=== PATIENT | male | born 1950 | race Hispanic/Latino ===

== ENCOUNTER → 2022-06-23 | Outpatient (CLI) | payer OTHER | END | disposition home or self-care (01) | LOC: RAH 12:16 | PROVIDERS: ATTEND Internal Medicine | DX: J44.9 Chronic obstructive pulmonary disease, unspecified (principal); M47.815 Spondylosis without myelopathy or radiculopathy, thoracolumbar region | CPT/HCPCS: 71046 ==

== ENCOUNTER 2025-02-02 12:53 | Inpatient (IN) | payer OTHER ==
[~2025-02-02] VITALS: Ht 170.2 cm; Wt 94.0 kg
[2025-02-02 13:48] LABS: IMMATURE GRANULOCYTE ABSOLUTE 0.11 K/uL (0-1); NUCLEATED RED BLOOD CELLS 0.0 % (0.0-0.19); PLATELET COUNT (AUTO) 545 K/uL (130-400); RED BLOOD CELL COUNT(AUTO) 5.03 MIL/uL (4.50-6.20); RED CELL DISTRIBUTION WIDTH 13.5 % (11.0-15.5); WHITE BLOOD COUNT (AUTO) 12.6 K/uL (4.8-10.8)
--- NOTE | 2025-02-02 13:55 | EKG ---
[facility] Test Date: 2025-02-02 Test Time: 13:50:51 Pat Name: JOSHUA TIWARI Department: ED Room: DIRECT Gender: M Lag Screwer: [id number] : 1950 Requested By: ERIN HIGGINS Order Number: [id number] Reading MD: Denver Salinas Measurements Intervals [place] Rate: 78 P: 18 FL: 157 QRS: -18 QRSD: 88 T: 24 QT: 381 QTc: 434 Interpretive Statements Sinus rhythm No previous ECG available for comparison Electronically Signed On 02-02-2025 16:33:25 CDT by Denver Salinas Please click the below link to view image of tracing.
[2025-02-02 13:56] LABS: CREATININE 1.3 mg/dL (0.5-1.3); GLOMERULAR FILTR. RATE CALC 58.0 mL/min (>90); GLUCOSE,RANDOM 150.0 mg/dL (70-105); SODIUM SERUM 131.0 mmol/L (136-145); UREA NITROGEN, BLOOD 37.0 mg/dL (7-18)
[2025-02-02 14:00] LABS: INR 1.15 (0.85-1.15)
[2025-02-02] MEDS ORDERED: NITROGLYCERIN 0.4 MG SL TAB SL PRN (14:00)
--- NOTE | 2025-02-02 14:00 | NUR ---
ATTEMPTED TO RECONCILE MEDS WITH PT, WHEN ASKED WHEN WAS THE LAST TIME HE TOOK PILLS PT REPORTED " YOU ARE ASKING TOO MANY QUESTIONS". PT REPORTS THAT HE DOES NOT RECALL WHEN WAS THE LAST TIME HE TOOK HIS MEDICATIONS.
[2025-02-02 14:04] LABS: ASPARTATE AMINOTRANSFERASE 64.0 U/L (10-37); CREATINE KINASE, TOTAL 51.0 U/L (21-232); TOTAL PROTEIN, SERUM 7.9 g/dL (6.0-8.3)
[2025-02-02] MEDS ORDERED: LISI10TA24 PO (14:07)
[2025-02-02] MEDS ORDERED: ROSU20TA98 PO (14:07)
[2025-02-02] MEDS ORDERED: CLOP-31 PO (14:07)
[2025-02-02] MEDS ORDERED: DAPA10TA PO (14:07)
[2025-02-02] MEDS ORDERED: ALLO300T2 PO (14:07)
[2025-02-02] MEDS ORDERED: GABA-1405 PO (14:07)
--- NOTE | 2025-02-02 15:05 | NUR ---
REC PT AT THIS TIME FULL BED CH REQ DUE TO INCONTENENCE
[2025-02-02] MEDS: 1/2 NS 1000ML 1,000 ML IV SCH (15:09)
[2025-02-02 17:21] LABS: APPEARANCE,URINE CLEAR (CLEAR); GLUCOSE, URINE (UA) NEGATIVE (NEGATIVE); LEUKOCYTE ESTERASE ,URINE NEGATIVE Leu/uL (NEGATIVE); NITRATE,URINE NEGATIVE (NEGATIVE); OCCULT BLOOD,URINE NEGATIVE (NEGATIVE)
[2025-02-02 17:22] LABS: ADD UA MICROSCOPIC YES
[2025-02-02 17:23] LABS: OTHER CASTS, URINE 11 /LPF (None Seen); SQUAMOUS EPITHELIAL CELL,UR RARE /HPF (0-2)
--- NOTE | 2025-02-02 17:37 | CONS ---
Cardiac Consult Note CONSULT NOTE DATE OF SERVICE: Feb 02, 2025 at 12:53 REFERRING PROVIDER: JEN PERALES MD REASON FOR CONSULT: Concerns for peripheral arterial disease HPI: 74-year-old patient who was admitted from his PCP's office secondary to leg pain. Patient states he was at a hospital in [place] last week for a day and was told he had peripheral arterial disease but they did nothing else and patient did not have any invasive studies done. He presented to his PCP's office with complaints of leg pain and significant leg weakness with standing which he felt he had no strength in his legs. Patient also describes more significant swelling in the right leg compared to the left. He denies any wounds or ulcers. He denies any prior history of myocardial infarction CVA or TIA. He does have a history of diabetes mellitus and hypertension. Patient states he no longer drinks and he does not smoke ROS: No fever, headache, chest pain, abdominal pain, nausea, vomiting, or diarrhea. PMHX: Diabetes mellitus Hypertension Dyslipidemia PSHX: Patient denies any prior surgeries FH: Noncontributory SOCIAL: Former drinker nonsmoker PHYSICAL EXAMINATION: GENERAL: No acute distress. HEENT: Normocephalic, atraumatic. CARDIAC: Positive S1 and S2 distant heart sounds. No murmurs. LUNGS: Clear to auscultation bilaterally. ABDOMEN: Bowel sounds present, soft, nontender. EXTREMITIES: Trace pretibial edema on right and ankle edema on left with minor hyperpigmentation noted bilaterally and right leg does seem slightly enlarged compared to left in regards to girth poorly palpable pedal and popliteal pulses NEUROLOGIC: Cranial nerves 2-12 grossly intact. PSYCHIATRIC: Calm. ASSESSMENT: Peripheral arterial disease Possible venous insufficiency Diabetes mellitus Diabetic angiopathy PLAN: At this time I think would be most reasonable to proceed with a peripheral arterial disease workup to include bilateral lower extremity arterial Dopplers and lower extremity venous Dopplers considering patient's unilateral swelling. Also with the patient's swelling I would schedule him for a 2D echocardiogram for overall cardiac assessment. We will also check hemoglobin A1c to assess glu cose control as an outpatient. We will also optimize lipid management. We will check appropriate labs in a.m.. Vital Signs 02/02/25 02/02/25 12:55 16:19 Temp 98.4 98.6 Pulse 95 68 Resp 19 16 B/P (MAP) 131/82 130/68 Pulse Ox 98 98 O2 Delivery Room Air Room Air* O2 Flow Rate 0 0 FiO2 21 Laboratory Tests Test 02/02/25 13:40 02/02/25 17:14 White Blood Count 12.6 K/uL (4.8-10.8) Red Blood Count 5.03 MIL/uL (4.50-6.20) Hemoglobin 14.7 g/dL (14.0-18.0) Hematocrit 45.3 % (42-54) Mean Corpuscular Volume 90.1 fL (79-99) Mean Corpuscular Hemoglobin 29.2 pg (27.0-33.0) Mean Corpuscular Hemoglobin Concent 32.5 g/dL (32.0-36.0) Red Cell Distribution Width 13.5 % (11.0-15.5) Platelet Count 545 K/uL (130-400) Mean Platelet Volume 8.8 fL (7.5-10.5) Immature Granulocyte % (Auto) 0.9 % (0-1) Neutrophils (%) (Auto) 73.4 % (40.0-77.0) Lymphocytes (%) (Auto) 10.2 % (21.0-51.0) Monocytes (%) (Auto) 13.9 % (3.0-13.0) Eosinophils (%) (Auto) 0.8 % (0.0-8.0) Basophils (%) (Auto) 0.8 % (0.0-5.0) Neutrophils # (Auto) 9.2 K/uL (1.8-7.7) Lymphocytes # (Auto) 1.3 K/uL (1.0-4.8) Monocytes # (Auto) 1.7 K/uL (0.1-1.0) Eosinophils # (Auto) 0.10 K/uL (0.00-0.70) Basophils # (Auto) 0.10 K/uL (0.00-0.20) Absolute Immature Granulocyte (auto 0.11 K/uL (0-1) Nucleated Red Blood Cells 0.0 % (0.0-0.19) Prothrombin Time 12.0 SEC (9.6-11.6) Prothromb Time International Ratio 1.15 (0.85-1.15) Activated Partial Thromboplast Time 30.9 SEC (26.3-35.5) Sodium Level 131 mmol/L (136-145) Potassium Level 4.7 mmol/L (3.5-5.1) Chloride Level 94 mmol/L (101-111) Carbon Dioxide Level 24 mmol/L (21-32) Blood Urea Nitrogen 37 mg/dL (7-18) Creatinine 1.3 mg/dL (0.5-1.3) Glomerular Filtration Rate Calc 58 mL/min (>90) Random Glucose 150 mg/dL (70-105) Total Calcium 9.2 mg/dL (8.5-10.1) Total Bilirubin 1.0 mg/dL (0.2-1.0) Aspartate Amino Transf (AST/SGOT) 64 U/L (10-37) Alanine Aminotransferase (ALT/SGPT) 85 U/L (12-78) Alkaline Phosphatase 85 U/L (50-136) Total Creatine Kinase 51 U/L (21-232) Troponin I High Sensitivity 21.5 ng/L (4-75) Total Protein 7.9 g/dL (6.0-8.3) Albumin 2.7 g/dL (3.5-5.0) Urine Color YELLOW (YELLOW) Urine Appearance CLEAR (CLEAR) Urine pH 5.0 (5.0-8.0) Urine Specific [place] 1.019 (1.001-1.031) Urine Protein NEGATIVE mg/dL (NEGATIVE) Urine Glucose (UA) NEGATIVE mg/dL (NEGATIVE) Urine Ketones NEGATIVE mg/dL (NEGATIVE) Urine Occult Blood NEGATIVE (NEGATIVE) Urine Nitrate NEGATIVE (NEGATIVE) Urine Bilirubin NEGATIVE mg/dL (NEGATIVE) Urine Urobilinogen 0.2 mg/dL (0.2-1.0) Urine Leukocyte Esterase NEGATIVE Yanci/uL Urine RBC 2-5 /HPF (0-1) Urine WBC 2-5 /HPF (0-1) Urine Squamous Epithelial Cells RARE /HPF (0-2) Urine Bacteria RARE /HPF (None Seen) Urine Hyaline Casts 6-10 /LPF (0-1 /LPF) Urine Other Casts 11 /LPF (None Seen) Current Medications Medications Dose Ordered Sig/Laurie Route PRN Reason Start Time Stop Time Status Last Admin Sodium Chloride 1,000 ml @ 75 mls/hr [id number] IV 02/02/25 14:00 03/04/25 13:59 02/02/25 15:09 Aspirin 325 mg DAILY PO 02/03/25 09:00 03/05/25 08:59 Reported Medications Gabapentin (Gabapentin) 600 Mg Tablet, 300 MG PO TID, TAB 02/02/25 Clopidogrel Bisulfate (Plavix) 75 Mg Tablet, 1 TAB PO DAILY for 30 Days, #30 TAB 0 Refills 02/02/25 Allopurinol (Allopurinol) 300 Mg Tablet, 1 TAB PO DAILY for 30 Days, #30 TAB 0 Refills 02/02/25 Lisinopril (Lisinopril) 10 Mg Tablet, 1 TAB PO DAILY for 30 Days, #30 TAB 0 Refills 02/02/25 Rosuvastatin Calcium (Rosuvastatin Calcium) 20 Mg Tablet, 20 MG PO DAILY, TAB 02/02/25 Dapagliflozin Propanediol (Farxiga) 10 Mg Tablet, 10 MG PO DAILY, TAB 02/02/25 JEN PERALES MD Feb 02, 2025 17:37
--- NOTE | 2025-02-02 20:05 | HP ---
HISTORY AND PHYSICAL NOTE DATE OF CONSULTATION: 02/02/25 REASON FOR CONSULTATION: Leg pain and leg weakness HISTORY OF PRESENT ILLNESS: Patient with known peripheral arterial disease now with increased leg pain and weakness is being admitted as he has bluish discoloration to the leg suggestive of possible impending ischemia is being admitted for further evaluation PAST MEDICAL HISTORY: Significant for diabetes hypertension hyperlipidemia umbilical hernia repair recently history of gout ex-smoker spinal stenosis aortic stenosis moderate and ALLERGIES: Coded Allergies: No Known Drug Allergies (Unverified Allergy, Unknown, 02/02/25) HOME MEDS: Reported Medications Gabapentin (Gabapentin) 600 Mg Tablet, 300 MG PO TID, TAB 02/02/25 Clopidogrel Bisulfate (Plavix) 75 Mg Tablet, 1 TAB PO DAILY for 30 Days, #30 TAB 0 Refills 02/02/25 Allopurinol (Allopurinol) 300 Mg Tablet, 1 TAB PO DAILY for 30 Days, #30 TAB 0 Refills 02/02/25 Lisinopril (Lisinopril) 10 Mg Tablet, 1 TAB PO DAILY for 30 Days, #30 TAB 0 Refills 02/02/25 Rosuvastatin Calcium (Rosuvastatin Calcium) 20 Mg Tablet, 20 MG PO DAILY, TAB 02/02/25 Dapagliflozin Propanediol (Farxiga) 10 Mg Tablet, 10 MG PO DAILY, TAB 02/02/25 INPATIENT MEDS: Current Medications Medications Dose Ordered Sig/Laurie Start Time Stop Time Status Last Admin Sodium Chloride 1,000 ml @ 75 mls/hr [id number] 02/02/25 14:00 03/04/25 13:59 02/02/25 15:09 Acetaminophen 650 mg Q4H PRN 02/02/25 14:00 03/04/25 13:59 Ondansetron HCl 4 mg Q6H PRN 02/02/25 14:00 03/04/25 13:59 Zolpidem Tartrate 5 mg HS PRN 02/02/25 14:00 03/04/25 13:59 Nitroglycerin 0.4 mg AD PRN 02/02/25 14:00 03/04/25 13:59 Clonidine HCl 0.1 mg Q4H PRN 02/02/25 14:00 03/04/25 13:59 Aspirin 325 mg DAILY 02/03/25 09:00 03/05/25 08:59 VITAL SIGNS Vital Signs Date Time Temp Pulse Resp B/P (MAP) Pulse Ox O2 Delivery O2 Flow Rate FiO2 02/02/25 18:54 98.6 64 16 124/54 98 Room Air* 0 21 02/02/25 16:19 98.6 68 16 130/68 98 Room Air* 0 21 02/02/25 12:55 98.4 95 19 131/82 98 Room Air 0 PHYSICAL EXAM HEENT atraumatic normocephalic head Neck is supple Lungs are clear to auscultation percussion Heart was S1-S2 heard no murmur Extremities no pedal edema Extremities reveal bluish discoloration with feeble pedal pulses Skin exam unremarkable Neurologic no focal weakness Psychiatric no depression LABORATORY RESULTS Laboratory Tests 02/02/25 13:40: White Blood Count 12.6, Red Blood Count 5.03, Hemoglobin 14.7, Hematocrit 45.3, Mean Corpuscular Volume 90.1, Mean Corpuscular Hemoglobin 29.2, Mean Corpuscular Hemoglobin Concent 32.5, Red Cell Distribution Width 13.5, Platelet Count 545, Mean Platelet Volume 8.8, Immature Granulocyte % (Auto) 0.9, Neutrophils (%) (Auto) 73.4, Lymphocytes (%) (Auto) 10.2, Monocytes (%) (Auto) 13.9, Eosinophils (%) (Auto) 0.8, Basophils (%) (Auto) 0.8, Neutrophils # (Auto) 9.2, Lymphocytes # (Auto) 1.3, Monocytes # (Auto) 1.7, Eosinophils # (Auto) 0.10, Basophils # (Auto) 0.10, Absolute Immature Granulocyte (auto 0.11, Nucleated Red Blood Cells 0.0, Prothrombin Time 12.0, Prothromb Time International Ratio 1.15, Activated Partial Thromboplast Time 30.9, Sodium Level 131, Potassium Level 4.7, Chloride Level 94, Carbon Dioxide Level 24, Blood Urea Nitrogen 37, Creatinine 1.3, Glome rular Filtration Rate Calc 58, Random Glucose 150, Total Calcium 9.2, Total Bilirubin 1.0, Aspartate Amino Transf (AST/SGOT) 64, Alanine Aminotransferase (ALT/SGPT) 85, Alkaline Phosphatase 85, Total Creatine Kinase 51, Troponin I High Sensitivity 21.5, Total Protein 7.9, Albumin 2.7 02/02/25 17:14: Urine Color YELLOW, Urine Appearance CLEAR, Urine pH 5.0, Urine Specific [place] 1.019, Urine Protein NEGATIVE, Urine Glucose (UA) NEGATIVE, Urine Ketones NEGATIVE, Urine Occult Blood NEGATIVE, Urine Nitrate NEGATIVE, Urine Bilirubin NEGATIVE, Urine Urobilinogen 0.2, Urine Leukocyte Esterase NEGATIVE, Urine RBC 2-5, Urine WBC 2-5, Urine Squamous Epithelial Cells RARE, Urine Bacteria RARE, Urine Hyaline Casts 6-10, Urine Other Casts 11 PROBLEM LIST: (1) PAD (peripheral artery disease) ICD Codes: I73.9 - Peripheral vascular disease, unspecified PLAN PID with possible impending ischemia follow up with anticoagulation consult Card iology symptomatic pain treatment Sliding scale for diabetes Resume home medication for hyperlipidemia Chronic obstructive pulmonary disease ERIN HIGGINS MD Feb 02, 2025 20:05
--- NOTE | 2025-02-02 22:48 | NUR ---
FIRST ATTEMPT TO PROVIDE REPORT SUNNY CURRENTLY PROVIDING PT CARE PROVIDED EXT FOR CALL BACK
[2025-02-02 23:25] VITALS: BP 113/60; PULSE 73; RESP 20; TEMP 99
[2025-02-03] VITALS (7 sets, daily range): BP systolic 134–153; BP diastolic 55–73; PULSE 66–79; RESP 15–18; TEMP 97.8–98.4; O2SAT 94–99
[2025-02-03 04:23] LABS: IMMATURE GRANULOCYTE ABSOLUTE 0.09 K/uL (0-1); NUCLEATED RED BLOOD CELLS 0.0 % (0.0-0.19); PLATELET COUNT (AUTO) 547 K/uL (130-400); RED BLOOD CELL COUNT(AUTO) 4.69 MIL/uL (4.50-6.20); RED CELL DISTRIBUTION WIDTH 13.4 % (11.0-15.5); WHITE BLOOD COUNT (AUTO) 11.4 K/uL (4.8-10.8)
[2025-02-03 04:46] LABS: CREATININE 1.0 mg/dL (0.5-1.3); GLOMERULAR FILTR. RATE CALC 79.0 mL/min (>90); GLUCOSE,RANDOM 157.0 mg/dL (70-105); SODIUM SERUM 133.0 mmol/L (136-145); UREA NITROGEN, BLOOD 37.0 mg/dL (7-18)
[2025-02-03] MEDS: ASPIRIN 325MG TAB PO SCH (09:41)
--- NOTE | 2025-02-03 11:41 | NUR ---
DCP:HOME vs SNF SW spoke with brother Brody Mayfield [phone] due to pt being asleep and not wanting to wake up. Pt uses wheelchair, walker, and crutches at home. As per brother he does not have provider service at this time however feels that he should have one due to having difficulty completing ADLs. PCP is Dr. West and uses [facility] for any RX needs. At [place] brother states that pt had made a comment that he would be willing to go to SNF for PT (no consent obtained). *pt does have an adult son however as per brother, son is disabled and lives in [place] [facility] [place]. Addendum: 02/03/25 at 1144 by SUNNY ARELLANO SS Amended: Links added.
--- NOTE | 2025-02-03 12:58 | HMCIMG ---
CHEST 1VW REASON: sob COMPARISON: Prior study from 06/23/2022 is available. FINDINGS: Single view of the chest was obtained. Lungs are clear. Heart size is normal. There is no pulmonary vascular congestion. Mediastinum and bony thorax appear unremarkable. IMPRESSION: 1. Unchanged from prior study with no acute cardiac pulmonary process.
--- NOTE | 2025-02-03 13:09 | PN ---
PROGRESS NOTE PROBLEM LIST: Peripheral arterial disease Possible venous insufficiency Diabetes mellitus Diabetic angiopathy INTERIM HISTORY OF PRESENT ILLNESS: Overall patient states he is doing well. Denies any chest pain pressure tightness. Home medications have not been reconciliation and started. REVIEW OF SYSTEMS: No fever, headache, chest pain, abdominal pain, nausea, vomiting, or diarrhea. VITAL SIGNS Vital Signs Date Time Temp Pulse Resp B/P (MAP) Pulse Ox O2 Delivery O2 Flow Rate FiO2 02/03/25 12:00 97.9 68 18 153/73 94 Room Air 02/03/25 00:31 0 21 Laboratory Tests 02/02/25 13:40 02/03/25 03:48 LABS/MEDS Laboratory Tests Test 02/02/25 13:40 02/02/25 17:14 02/02/25 23:04 02/03/25 03:48 White Blood Count 12.6 K/uL (4.8-10.8) H 11.4 K/uL (4.8-10.8) H Red Blood Count 5.03 MIL/uL (4.50-6.20) 4.69 MIL/uL (4.50-6.20) Hemoglobin 14.7 g/dL (14.0-18.0) 13.7 g/dL (14.0-18.0) L Hematocrit 45.3 % (42-54) 41.4 % (42-54) L Mean Corpuscular Volume 90.1 fL (79-99) 88.3 fL (79-99) Mean Corpuscular Hemoglobin 29.2 pg (27.0-33.0) 29.2 pg (27.0-33.0) Mean Corpuscular Hemoglobin Concent 32.5 g/dL (32.0-36.0) 33.1 g/dL (32.0-36.0) Red Cell Distribution Width 13.5 % (11.0-15.5) 13.4 % (11.0-15.5) Platelet Count 545 K/uL (130-400) H 547 K/uL (130-400) H Mean Platelet Volume 8.8 fL (7.5-10.5) 9.1 fL (7.5-10.5) Immature Granulocyte % (Auto) 0.9 % (0-1) 0.8 % (0-1) Neutrophils (%) (Auto) 73.4 % (40.0-77.0) 65.6 % (40.0-77.0) Lymphocytes (%) (Auto) 10.2 % (21.0-51.0) L 14.4 % (21.0-51.0) L Monocytes (%) (Auto) 13.9 % (3.0-13.0) H 14.6 % (3.0-13.0) H Eosinophils (%) (Auto) 0.8 % (0.0-8.0) 3.7 % (0.0-8.0) Basophils (%) (Auto) 0.8 % (0.0-5.0) 0.9 % (0.0-5.0) Neutrophils # (Auto) 9.2 K/uL (1.8-7.7) H 7.5 K/uL (1.8-7.7) Lymphocytes # (Auto) 1.3 K/uL (1.0-4.8) 1.6 K/uL (1.0-4.8) Monocytes # (Auto) 1.7 K/uL (0.1-1.0) H 1.7 K/uL (0.1-1.0) H Eosinophils # (Auto) 0.10 K/uL (0.00-0.70) 0.42 K/uL (0.00-0.70) Basophils # (Auto) 0.10 K/uL (0.00-0.20) 0.10 K/uL (0.00-0.20) Absolute Immature Granulocyte (auto 0.11 K/uL (0-1) 0.09 K/uL (0-1) Nucleated Red Blood Cells 0.0 % (0.0-0.19) 0.0 % (0.0-0.19) Prothrombin Time 12.0 SEC (9.6-11.6) H Prothromb Time International Ratio 1.15 (0.85-1.15) Activated Partial Thromboplast Time 30.9 SEC (26.3-35.5) Sodium Level 131 mmol/L (136-145) L 133 mmol/L (136-145) L Potassium Level 4.7 mmol/L (3.5-5.1) 4.4 mmol/L (3.5-5.1) Chloride Level 94 mmol/L (101-111) L 98 mmol/L (101-111) L Carbon Dioxide Level 24 mmol/L (21-32) 26 mmol/L (21-32) Blood Urea Nitrogen 37 mg/dL (7-18) H 37 mg/dL (7-18) H Creatinine 1.3 mg/dL (0.5-1.3) 1.0 mg/dL (0.5-1.3) Glomerular Filtration Rate Calc 58 mL/min (>90) 79 mL/min (>90) Random Glucose 150 mg/dL (70-105) H 157 mg/dL (70-105) H Total Calcium 9.2 mg/dL (8.5-10.1) 8.6 mg/dL (8.5-10.1) Total Bilirubin 1.0 mg/dL (0.2-1.0) Aspartate Amino Transf (AST/SGOT) 64 U/L (10-37) H Alanine Aminotransferase (ALT/SGPT) 85 U/L (12-78) H Alkaline Phosphatase 85 U/L (50-136) Total Creatine Kinase 51 U/L (21-232) Troponin I High Sensitivity 21.5 ng/L (4-75) Total Protein 7.9 g/dL (6.0-8.3) Albumin 2.7 g/dL (3.5-5.0) L Urine Color YELLOW (YELLOW) Urine Appearance CLEAR (CLEAR) Urine pH 5.0 (5.0-8.0) Urine Specific [place] 1.019 (1.001-1.031) Urine Protein NEGATIVE mg/dL (NEGATIVE) Urine Glucose (UA) NEGATIVE mg/dL (NEGATIVE) Urine Ketones NEGATIVE mg/dL (NEGATIVE) Urine Occult Blood NEGATIVE (NEGATIVE) Urine Nitrate NEGATIVE (NEGATIVE) Urine Bilirubin NEGATIVE mg/dL (NEGATIVE) Urine Urobilinogen 0.2 mg/dL (0.2-1.0) Urine Leukocyte Esterase NEGATIVE Yanci/uL Urine RBC 2-5 /HPF (0-1) H Urine WBC 2-5 /HPF (0-1) H Urine Squamous Epithelial Cells RARE /HPF (0-2) Urine Bacteria RARE /HPF (None Seen) Urine Hyaline Casts 6-10 /LPF (0-1 /LPF) H Urine Other Casts 11 /LPF (None Seen) Whole Blood Glucose 183 MG/DL (70-110) H Test 02/03/25 04:28 02/03/25 11:29 Whole Blood Glucose 164 MG/DL (70-110) H 146 MG/DL (70-110) H Current Medications Sodium Chloride 1,000 ml @ 75 mls/hr [id number] IV Last administered on 02/03/25at 03:20; Start 02/02/25 at 14:00; Stop 03/04/25 at 13:59 Acetaminophen 650 mg Q4H PRN PO Last administered on 02/03/25at 09:41; Start 02/02/25 at 14:00; Stop 03/04/25 at 13:59 Ondansetron HCl 4 mg Q6H PRN IVP; Start 02/02/25 at 14:00; Stop 03/04/25 at 13:59 Zolpidem Tartrate 5 mg HS PRN PO; Start 02/02/25 at 14:00; Stop 03/04/25 at 13:59 Nitroglycerin 0.4 mg AD PRN SL; Start 02/02/25 at 14:00; Stop 03/04/25 at 13:59 Clonidine HCl 0.1 mg Q4H PRN PO; Start 02/02/25 at 14:00; Stop 03/04/25 at 13:59 Aspirin 325 mg DAILY PO Last administered on 02/03/25at 09:41; Start 02/03/25 at 09:00; Stop 03/05/25 at 08:59 Methylprednisolone Sodium Succinate 125 mg DAILY08 IVP Last administered on 02/03/25at 09:39; Start 02/03/25 at 08:00; Stop 02/05/25 at 11:00 PHYSICAL EXAMINATION: GENERAL: No acute distress. HEENT: Normocephalic, atraumatic. CARDIAC: Positive S1 and S2. No murmurs. LUNGS: Clear to auscultation bilaterally. ABDOMEN: Bowel sounds present, soft, nontender. EXTREMITIES: Bilateral lower extremity edema noted NEUROLOGIC: Cranial nerves 2-12 grossly intact. PSYCHIATRIC: Calm. TELEMETRY: Normal sinus rhythm ASSESSMENT: []Peripheral arterial disease Possible venous insufficiency Diabetes mellitus Diabetic angiopathy PLAN: [] We will check 2D echocardiography today. We will check lower extremity arterial Dopplers today. We will check lower extremity venous Dopplers. We will institute lisinopril 10 mg daily. This is the patient's home medication. He also takes a sodium glucose transport to inhibitor which can be initiated by primary team. Patient may benefit from CT angiography of abdominal aorta with bilateral lower extremity runoffs if arterial Doppler studies are significant for PAD. JEN PERALES MD Feb 03, 2025 13:09
--- NOTE | 2025-02-03 13:27 | HMCIMG ---
US ARTERIAL BILAT LOW EXT DUPL HISTORY: PAD TECHNIQUE: Duplex Doppler evaluation of the arteries of both legs performed. FINDINGS: Grayscale images revealed intimal calcifications throughout both lower extremities. Peak systolic velocities and wave patterns were documented, as follows: RIGHT LEG Common femoral: 122 cm/s Triphasic Superficial femoral prox: 108 cm/s Triphasic Superficial femoral mid: 1:15 cm/s Triphasic Superficial femoral distal: 91 cm/s Triphasic Popliteal: 100 cm/s Triphasic Posterior tibial: 112 cm/s monophasic Dorsalis pedis: 177 cm/s monophasic LEFT LEG Common femoral: 107 cm/s biphasic Superficial femoral prox: 105 cm/s Triphasic Superficial femoral mid: 95 cm/s Triphasic Superficial femoral distal: 86 cm/s Triphasic Popliteal: 86 cm/s monophasic Posterior tibial: 128 cm/s monophasic Dorsalis pedis: 52 cm/s monophasic There is mild diffuse atherosclerotic changes with calcified plaque IMPRESSION: Mild diffuse atherosclerotic changes with calcified plaque. Recommend CTA of the lower extremities for further workup.
--- NOTE | 2025-02-03 15:48 | HMCIMG ---
US VENOUS DOPPLER BILATERAL REASON: edema COMPARISON: None Technique: Bilateral venous doppler ultrasound was performed with spectral analysis and color flow imaging technique. FINDINGS: There is a normal appearance of the common femoral, deep femoral, the profunda femoris and popliteal veins. Proximal calf veins appear normal as well. There is normal response to compression and augmentation. There is no evidence of deep venous thrombosis. IMPRESSION: Normal bilateral lower extremity venous Doppler ultrasound.
--- NOTE | 2025-02-03 15:59 | NUR ---
REFERAL SENT TO [facility]. PENDING FURTHER EVALUATION OF PAD
--- NOTE | 2025-02-03 16:00 | NUR ---
Nutrition consult per T2DM Reviewed labs, notes, and medications. Pt on HH diet, IV fluids, Na 133(L), elevated BUN 37, Cr WNL, BG 164 (H), elevated AST and ALT, no A1C lipid or vit. D labs per chart review. Wt via bed scale, with stage II buttock ulcer, last BM 02/03/25, mild pitting, well nourished per nursing. Pt asleep during visit. Per research low vitamin D may contribute to insulin resistance + vit. D deficiency may impair wound healing. Zinc deficiency can slow wound healing, while zinc supplementation can speed recovery in people with wounds per research. Pending labs to provide nutrition education. Recommendations: -Provide HH+ 60 gm cho + prostat jello tid w/ trays -Monitor PO intake -Encourage PO intake as able -Monitor BM -If no BM >3 days consider stool softener -Monitor electrolytes -Replenish electrolytes per protocol -Monitor wts -Reweigh as able -Order Vit D, vit b-12 labs to rule out deficiencies -Order lipid panel, A1C -Provide MVI + b-complex to aid in wound healing QD -Texture per BUMBOATER recs -Recommend Pt to follow up with PCP -Monitor goals of care RD to follow + available for consult per protocol Addendum: 02/03/25 at [address] Amended: Links added.
[2025-02-03 17:22] LABS: LDL DIRECT 93 mg/dL (0-99)
--- NOTE | 2025-02-03 18:26 | HMCSR ---
APPROVED REPORT EXAM: Two-dimensional and M-mode echocardiogram with Doppler and color Doppler. INDICATION ICD: Edema, congestive heart failure, coronary artery disease 2D Dimensions RVDd4.2 cmLVEF(%)45.8 (>50%)LVED Vol(simp.)67.0 mL IVSd0.9 (0.7-1.1cm)FS(%)23 %LVES Vol(simp.)28.0 mL LVDd5.5 (3.8-5.6cm)LA (2D)4.4 (1.6-4.0cm)LVEF(%, simp.)58 % PWd1.2 (0.7-1.1cm)Ao Root(2D)3.9 (2.0-3.7cm)LA ESV INDEX (BP)30.04 mL/m2 IVSs1.2 cmLVOT diam2.6 (1.8-2.4cm) LVDs4.2 (2.5-4.0cm) PWs1.6 cm Deformation Strain Apical 4-16.5 % Apical 2-11.1 % Apical 3-18.9 % Global Strain-15.5 % M-Mode Dimensions EPSS1.0 cm LA (MM)4.9 (1.6-4.0cm) Ao Root(MM)3.7 (2.0-3.7cm) Aortic Valve AoV Vmax3.0 m/Andria Peak GR42.8 mmHgLVOT Vmax1.1 m/s AoV VTI0.6 mAo Mean GR21.5 mmHgLVOT VTI0.22 m CARLA (VMAX)1.90 cm2Al P1/2T434 msAVA (VTI) 2.1 cm2 Mitral Valve MV E Vmax61.6 cm/sDECEL Nnji108 ms MV A Vmax81.2 cm/sP 1/2 T63 ms E/A ratio0.8MVA (PHT)3.5 cm2 TDI E/E' Hibofz70.0E/E' Lateral7.6 Medial E' Peak V6.15 cm/sLateral E' Peak V8.13 cm/s Pulmonary Valve PV Vmax1.3 m/sPV VTI0.22 mPV Mean GR3.9 mmHg PV Peak GR6.9 mmHgPI End Nuria. Devang 129.7 cm/s Tricuspid Valve TR Vmax2.8 m/sRAP (EST) 3 auVuVYLF18.2 mmHg TR Peak GR31.2 mmHg Left Ventricle The left ventricle is normal size. There is normal left ventricular wall thickness. LVEF is >55%. The left ventricular diastolic function is normal. Right Ventricle The right ventricle is normal size. The right ventricular systolic function is normal. Atria The left atrium size is normal. The right atrium size is normal. Aortic Valve The aortic valve is thickened with annular calcification noted. Trace aortic regurgitation is present . There is mild to moderate valvular aortic stenosis. Highest mean aortic valve gradient is 20mmHg, h ighest pk gardient 35mmHg. AoV area 1.9cm2 Mitral Valve The mitral valve is normal in structure. There is no mitral valve regurgitation noted. There is no mi tral valve stenosis. Tricuspid Valve The tricuspid valve is normal in structure. There is trace tricuspid valve regurgitation noted. Pulmonic Valve Pulmonic valve is not well visualized. There is trace pulmonic valvular regurgitation. Great Vessels The aortic root is normal in size. The IVC is normal in size and collapses >50% with inspiration. Pericardium There is no pericardial effusion. Other Information Quality : Technically difficult study due to body habitus Conclusion The left ventricle is normal size. LVEF is >55%. The left ventricular diastolic function is normal. The right ventricular systolic function is normal. Both atria are normal in size. There is mild to moderate valvular aortic stenosis. (Highest mean aortic valve gradient is 20mmHg an d AoV area 1.9cm2) There is no pericardial effusion.
--- NOTE | 2025-02-03 19:42 | PN ---
PROGRESS NOTE PROGRESS NOTE DATE OF PROGRESS NOTE: 02/03/25 SUBJECTIVE: Patient appears to have painful leg from gout VITAL SIGNS Vital Signs Date Time Temp Pulse Resp B/P (MAP) Pulse Ox O2 Delivery O2 Flow Rate FiO2 02/03/25 16:00 98.1 69 18 139/63 95 Room Air 02/03/25 09:41 0 21 PHYSICAL EXAM: HEENT atraumatic normocephalic head Neck is supple Lungs are clear to auscultation percussion Heart was S1-S2 heard no murmur Extremities no pedal edema Extremities reveal bluish discoloration with feeble pedal pulses Skin exam unremarkable Neurologic no focal weakness Psychiatric no depression LABORATORY: Laboratory Result(s) Test 02/02/25 23:04 02/03/25 03:48 02/03/25 04:28 02/03/25 11:29 Whole Blood Glucose 183 MG/DL (70-110) 164 MG/DL (70-110) 146 MG/DL (70-110) White Blood Count 11.4 K/uL (4.8-10.8) Red Blood Count 4.69 MIL/uL (4.50-6.20) Hemoglobin 13.7 g/dL (14.0-18.0) Hematocrit 41.4 % (42-54) Mean Corpuscular Volume 88.3 fL (79-99) Mean Corpuscular Hemoglobin 29.2 pg (27.0-33.0) Mean Corpuscular Hemoglobin Concent 33.1 g/dL (32.0-36.0) Red Cell Distribution Width 13.4 % (11.0-15.5) Platelet Count 547 K/uL (130-400) Mean Platelet Volume 9.1 fL (7.5-10.5) Immature Granulocyte % (Auto) 0.8 % (0-1) Neutrophils (%) (Auto) 65.6 % (40.0-77.0) Lymphocytes (%) (Auto) 14.4 % (21.0-51.0) Monocytes (%) (Auto) 14.6 % (3.0-13.0) Eosinophils (%) (Auto) 3.7 % (0.0-8.0) Basophils (%) (Auto) 0.9 % (0.0-5.0) Neutrophils # (Auto) 7.5 K/uL (1.8-7.7) Lymphocytes # (Auto) 1.6 K/uL (1.0-4.8) Monocytes # (Auto) 1.7 K/uL (0.1-1.0) Eosinophils # (Auto) 0.42 K/uL (0.00-0.70) Basophils # (Auto) 0.10 K/uL (0.00-0.20) Absolute Immature Granulocyte (auto 0.09 K/uL (0-1) Nucleated Red Blood Cells 0.0 % (0.0-0.19) Sodium Level 133 mmol/L (136-145) Potassium Level 4.4 mmol/L (3.5-5.1) Chloride Level 98 mmol/L (101-111) Carbon Dioxide Level 26 mmol/L (21-32) Blood Urea Nitrogen 37 mg/dL (7-18) Creatinine 1.0 mg/dL (0.5-1.3) Glomerular Filtration Rate Calc 79 mL/min (>90) Random Glucose 157 mg/dL (70-105) Hemoglobin A1c 7.4 % (4.0-6.0) Estimated Average Glucose (eAG) 166 mg/dL (70-126) Total Calcium 8.6 mg/dL (8.5-10.1) Triglycerides Level 68 mg/dL (30-200) Cholesterol Level 122 mg/dL (<200) LDL Cholesterol 93 mg/dL (0-99) HDL Cholesterol 23 mg/dL (29-71) Vitamin B12 Level 460 pg/mL (193-986) Test 02/03/25 15:50 02/03/25 19:32 Whole Blood Glucose 278 MG/DL (70-110) 214 MG/DL (70-110) INPATIENT MEDS: Current Medications Medications Dose Ordered Sig/Laurie Start Time Stop Time Status Last Admin Sodium Chloride 1,000 ml @ 75 mls/hr [id number] 02/02/25 14:00 03/04/25 13:59 02/03/25 03:20 Acetaminophen 650 mg Q4H PRN 02/02/25 14:00 03/04/25 13:59 02/03/25 09:41 Ondansetron HCl 4 mg Q6H PRN 02/02/25 14:00 03/04/25 13:59 Zolpidem Tartrate 5 mg HS PRN 02/02/25 14:00 03/04/25 13:59 Nitroglycerin 0.4 mg AD PRN 02/02/25 14:00 03/04/25 13:59 Clonidine HCl 0.1 mg Q4H PRN 02/02/25 14:00 03/04/25 13:59 Aspirin 325 mg DAILY 02/03/25 09:00 03/05/25 08:59 02/03/25 09:41 Methylprednisolone Sodium Succinate 125 mg DAILY08 02/03/25 08:00 02/05/25 11:00 02/03/25 09:39 Lisinopril 10 mg DAILY 02/04/25 09:00 03/06/25 08:59 PROBLEM LIST: (1) PAD (peripheral artery disease) ICD Code: I73.9 - Peripheral vascular disease, unspecified PLAN: Peripheral arterial disease workup pending Sliding scale for diabetes Resume home medication for hyperlipidemia Chronic obstructive pulmonary disease Acute gout Solu-Medrol given Physical therapy to evaluate and treat Case management for discharge plan ERIN HIGGINS MD Feb 03, 2025 19:42
--- NOTE | 2025-02-03 21:30 | NUR ---
ASSESS SHIFT ASSESSMENT DONE, PLEASE REFER TO CHART. NEW IVF BAG OF 1/2 NS HUNG. PCP IN TO CHANGE PT'S WET LINEN.
[2025-02-04] VITALS (8 sets, daily range): BP systolic 103–140; BP diastolic 55–67; PULSE 60–77; RESP 18–20; TEMP 97.6–98; O2SAT 96
--- NOTE | 2025-02-04 05:00 | NUR ---
ROUNDS PT SLEPT AT INTERVALS DURING THE SHIFT. NO DISTRESS NOTED. KEPT UNDISTURBED FOR NOW. FOR MORE CARE.
--- NOTE | 2025-02-04 06:55 | NUR ---
MD DR HIGGINS IN TO SEE PT. NEW ORDERS GIVEN, PLEASE REFER TO CPOE.
[2025-02-04] MEDS ORDERED: GLUCAGON 1MG KIT 1 MG ML IM PRN (07:00)
[2025-02-04] MEDS ORDERED: DEXTROSE 50%-WATER 50 ML DISP.SYRIN IV PRN (07:00)
[2025-02-04] MEDS: LISINOPRIL 10 MG TABLET PO SCH (11:16)
[2025-02-04] MEDS: GABAPENTIN 300 MG CAPSULE PO SCH (11:16)
--- NOTE | 2025-02-04 11:56 | PN ---
[facility] CARDIOLOGY PROGRESS NOTE Date Patient Seen: Feb 04, 2025 Time of Visit: 11:53 Interval History: [No events. ] Physical Examination: GENERAL: [No acute distress.] HEAD: [Normal with no signs of head trauma.] EYES: [PERRLA, EOMI, conjunctiva and sclera normal.] ENT: [Hearing grossly intact, normal oropharynx.] NECK: [Supple without JVD. There is no tenderness, lymphadenopathy, or masses. No thyromegaly. Normal carotid upstrokes without bruits.] LUNGS: [Clear breath sounds bilaterally. There are right basilar rales one third of the way up the chest. No wheezes, or rhonchi.] HEART: [Normal rate and rhythm. CIELO] VASC: [Peripheral pulses +2 bilaterally.] ABD: [Bowel sounds normal, soft, nontender, no masses, no organomegaly. No audible bruits.] : [Not examined] LYMPH: [No lymphadenopathy noted.] EXT: [No clubbing, cyanosis or edema.] SKIN: [No rashes or lesions noted.] NEURO: [Awake, alert, and oriented x3. No focal sensory or strength deficits noted.] Laboratory: [ ] Hematology Labs: Test 02/03/25 03:48 Range/Units White Blood Count 11.4 H 4.8-10.8 K/uL Red Blood Count 4.69 4.50-6.20 MIL/uL Hemoglobin 13.7 L 14.0-18.0 g/dL Hematocrit 41.4 L 42-54 % Mean Corpuscular Volume 88.3 79-99 fL Mean Corpuscular Hemoglobin 29.2 27.0-33.0 pg Mean Corpuscular Hemoglobin Concent 33.1 32.0-36.0 g/dL Red Cell Distribution Width 13.4 11.0-15.5 % Platelet Count 547 H 130-400 K/uL Mean Platelet Volume 9.1 7.5-10.5 fL Immature Granulocyte % (Auto) 0.8 0-1 % Neutrophils (%) (Auto) 65.6 40.0-77.0 % Lymphocytes (%) (Auto) 14.4 L 21.0-51.0 % Monocytes (%) (Auto) 14.6 H 3.0-13.0 % Eosinophils (%) (Auto) 3.7 0.0-8.0 % Basophils (%) (Auto) 0.9 0.0-5.0 % Neutrophils # (Auto) 7.5 1.8-7.7 K/uL Lymphocytes # (Auto) 1.6 1.0-4.8 K/uL Monocytes # (Auto) 1.7 H 0.1-1.0 K/uL Eosinophils # (Auto) 0.42 0.00-0.70 K/uL Basophils # (Auto) 0.10 0.00-0.20 K/uL Absolute Immature Granulocyte (auto 0.09 0-1 K/uL Nucleated Red Blood Cells 0.0 0.0-0.19 % Chemistry Labs: Test 02/04/25 05:27 02/03/25 03:48 02/02/25 13:40 Range/Units Whole Blood Glucose 173 H 70-110 MG/DL Sodium Level 133 L 136-145 mmol/L Potassium Level 4.4 3.5-5.1 mmol/L Chloride Level 98 L 101-111 mmol/L Carbon Dioxide Level 26 21-32 mmol/L Blood Urea Nitrogen 37 H 7-18 mg/dL Creatinine 1.0 0.5-1.3 mg/dL Glomerular Filtration Rate Calc 79 >90 mL/min Random Glucose 157 H 70-105 mg/dL Hemoglobin A1c 7.4 H 4.0-6.0 % Estimated Average Glucose (eAG) 166 H 70-126 mg/dL Total Calcium 8.6 8.5-10.1 mg/dL Triglycerides Level 68 30-200 mg/dL Cholesterol Level 122 <200 mg/dL LDL Cholesterol 93 0-99 mg/dL HDL Cholesterol 23 L 29-71 mg/dL Vitamin B12 Level 460 193-986 pg/mL Vitamin D 25-Hydroxy 36.6 30.0-100.0 ng/mL Total Bilirubin 1.0 0.2-1.0 mg/dL Aspartate Amino Transf (AST/SGOT) 64 H 10-37 U/L Alanine Aminotransferase (ALT/SGPT) 85 H 12-78 U/L Alkaline Phosphatase 85 50-136 U/L Total Creatine Kinase 51 21-232 U/L Troponin I High Sensitivity 21.5 4-75 ng/L Total Protein 7.9 6.0-8.3 g/dL Albumin 2.7 L 3.5-5.0 g/dL Coagulation Labs: Test 02/02/25 13:40 Range/Units Prothrombin Time 12.0 H 9.6-11.6 SEC Prothromb Time International Ratio 1.15 0.85-1.15 Activated Partial Thromboplast Time 30.9 26.3-35.5 SEC Diagnostics / Radiology: [Copy/Paste Echos/Imaging Report here] Impression and Plan: [Peripheral arterial disease Possible venous insufficiency Diabetes mellitus Diabetic angiopathy Mild to moderate aortic valve stenosis PLAN: -2d mild to moderate aortic valve stenosis with normal LVEF. -We will check lower extremity arterial Dopplers today. -normal venous lower extremity dopplers, if abnormal, will plan for CTA abdominal aorta with run off #HTN - c/w lisinopril 10 mg daily. This is the patient's home medication. ] WILLIAM GUTIERRES MD Feb 04, 2025 11:56
--- NOTE | 2025-02-04 20:05 | NUR ---
MEDS SHIFT ASSESSMENT DONE, PLEASE REFER TO CHART. DUE MEDS ADMINISTERED, TOLERATED WELL. KEPT RESTED AND COMFORTABLE IN BED. CALL LIGHT WITHIN REACH. BED ALARM ACTIVATED.
--- NOTE | 2025-02-04 22:44 | PN ---
PROGRESS NOTE PROGRESS NOTE DATE OF PROGRESS NOTE: 02/04/25 SUBJECTIVE: Patient feels better VITAL SIGNS Vital Signs Date Time Temp Pulse Resp B/P (MAP) Pulse Ox O2 Delivery O2 Flow Rate FiO2 02/04/25 20:00 97.5 69 18 137/67 96 Room Air 02/04/25 11:00 0 21 PHYSICAL EXAM: HEENT atraumatic normocephalic head Neck is supple Lungs are clear to auscultation percussion Heart was S1-S2 heard no murmur Extremities no pedal edema Extremities reveal bluish discoloration with feeble pedal pulses Skin exam unremarkable Neurologic no focal weakness Psychiatric no depression LABORATORY: Laboratory Result(s) Test 02/04/25 05:27 02/04/25 12:47 02/04/25 16:34 02/04/25 20:09 Whole Blood Glucose 173 MG/DL (70-110) 148 MG/DL (70-110) 333 MG/DL (70-110) 260 MG/DL (70-110) INPATIENT MEDS: Current Medications Medications Dose Ordered Sig/Laurie Start Time Stop Time Status Last Admin Sodium Chloride 1,000 ml @ 75 mls/hr [id number] 02/02/25 14:00 03/04/25 13:59 02/04/25 11:41 Acetaminophen 650 mg Q4H PRN 02/02/25 14:00 03/04/25 13:59 02/03/25 09:41 Ondansetron HCl 4 mg Q6H PRN 02/02/25 14:00 03/04/25 13:59 Zolpidem Tartrate 5 mg HS PRN 02/02/25 14:00 03/04/25 13:59 Nitroglycerin 0.4 mg AD PRN 02/02/25 14:00 03/04/25 13:59 Clonidine HCl 0.1 mg Q4H PRN 02/02/25 14:00 03/04/25 13:59 Aspirin 325 mg DAILY 02/03/25 09:00 03/05/25 08:59 02/04/25 11:15 Lisinopril 10 mg DAILY 02/04/25 09:00 03/06/25 08:59 02/04/25 11:16 Atorvastatin Calcium 40 mg HS 02/04/25 21:00 03/06/25 20:59 02/04/25 20:01 Insulin Human Regular INSULIN SLIDING SCAL... ACHS 02/04/25 07:30 03/06/25 07:29 02/04/25 20:27 Dextrose 50 ml AD PRN 02/04/25 07:00 03/06/25 06:59 Glucagon 1 mg AD PRN 02/04/25 07:00 03/06/25 06:59 Allopurinol 300 mg DAILY 02/04/25 09:00 03/06/25 08:59 02/04/25 11:16 Clopidogrel Bisulfate 75 mg DAILY 02/04/25 09:00 03/06/25 08:59 02/04/25 11:15 Home Med DAILY 02/04/25 09:00 03/06/25 08:59 Gabapentin 300 mg TID 02/04/25 09:00 03/06/25 08:59 02/04/25 20:02 Methylprednisolone Sodium Succinate 65 mg Q8H 02/05/25 00:00 03/06/25 07:59 PROBLEM LIST: (1) PAD (peripheral artery disease) ICD Code: I73.9 - Peripheral vascular disease, unspecified PLAN: Peripheral arterial disease workup pending Sliding scale for diabetes Resume home medication for hyperlipidemia Chronic obstructive pulmonary disease Acute gout Solu-Medrol given Physical therapy to evaluate and treat Case management for discharge plan ERIN HIGGINS MD Feb 04, 2025 22:44
[2025-02-04] MEDS: Solu-medROL 40MG VIAL IVP SCH (23:19)
[2025-02-05] VITALS (8 sets, daily range): BP systolic 109–149; BP diastolic 53–71; PULSE 63–72; RESP 18–20; TEMP 97.4–99; O2SAT 92
[2025-02-05 05:21] LABS: NUCLEATED RED BLOOD CELLS 0.0 % (0.0-0.19); PLATELET COUNT (AUTO) 575.0 K/uL (130-400); RED BLOOD CELL COUNT(AUTO) 4.35 MIL/uL (4.50-6.20); RED CELL DISTRIBUTION WIDTH 13.1 % (11.0-15.5); WHITE BLOOD COUNT (AUTO) 13.9 K/uL (4.8-10.8)
[2025-02-05 06:00] LABS: ASPARTATE AMINOTRANSFERASE 21.0 U/L (10-37); CREATININE 1.0 mg/dL (0.5-1.3); GLOMERULAR FILTR. RATE CALC 79.0 mL/min (>90); GLUCOSE,RANDOM 255.0 mg/dL (70-105); SODIUM SERUM 136.0 mmol/L (136-145); TOTAL PROTEIN, SERUM 6.6 g/dL (6.0-8.3); UREA NITROGEN, BLOOD 35.0 mg/dL (7-18)
--- NOTE | 2025-02-05 06:10 | NUR ---
MEDS PT SLEPT AT INTERVALS DURING THE SHIFT. NO DISTRESS NOTED. DUE MEDS ADMINISTERED, TOLERATED WELL. PCP IN AND GAVE PT A BED BATH, TOLERATED ACTIVITY WELL. KEPT RESTED IN BED. FOR MORE CARE.
--- NOTE | 2025-02-05 06:50 | NUR ---
MD DR HIGGINS IN TO SEE PT. NEW ORDERS RECEIVED, PLEASE REFER TO CPOE.
[2025-02-05] MEDS: Solu-medROL 40MG VIAL IVP ONE (09:07)
--- NOTE | 2025-02-05 10:14 | PN ---
[facility] CARDIOLOGY PROGRESS NOTE Date Patient Seen: Feb 05, 2025 Time of Visit: 10:12 Interval History: [No events. ] Physical Examination: GENERAL: [No acute distress.] HEAD: [Normal with no signs of head trauma.] EYES: [PERRLA, EOMI, conjunctiva and sclera normal.] ENT: [Hearing grossly intact, normal oropharynx.] NECK: [Supple without JVD. There is no tenderness, lymphadenopathy, or masses. No thyromegaly. Normal carotid upstrokes without bruits.] LUNGS: [Clear breath sounds bilaterally. There are right basilar rales one third of the way up the chest. No wheezes, or rhonchi.] HEART: [Normal rate and rhythm. CIELO] VASC: [Peripheral pulses +2 bilaterally.] ABD: [Bowel sounds normal, soft, nontender, no masses, no organomegaly. No audible bruits.] : [Not examined] LYMPH: [No lymphadenopathy noted.] EXT: [No clubbing, cyanosis or edema.] SKIN: [No rashes or lesions noted.] NEURO: [Awake, alert, and oriented x3. No focal sensory or strength deficits noted.] Laboratory: [ ] Hematology Labs: Test 02/05/25 05:16 Range/Units White Blood Count 13.9 H 4.8-10.8 K/uL Red Blood Count 4.35 L 4.50-6.20 MIL/uL Hemoglobin 13.0 L 14.0-18.0 g/dL Hematocrit 39.7 L 42-54 % Mean Corpuscular Volume 91.3 79-99 fL Mean Corpuscular Hemoglobin 29.9 27.0-33.0 pg Mean Corpuscular Hemoglobin Concent 32.7 32.0-36.0 g/dL Red Cell Distribution Width 13.1 11.0-15.5 % Platelet Count 575 H 130-400 K/uL Mean Platelet Volume 8.9 7.5-10.5 fL Nucleated Red Blood Cells 0.0 0.0-0.19 % Chemistry Labs: Test 02/05/25 05:16 02/05/25 05:15 Range/Units Sodium Level 136 136-145 mmol/L Potassium Level 4.5 3.5-5.1 mmol/L Chloride Level 102 101-111 mmol/L Carbon Dioxide Level 23 21-32 mmol/L Blood Urea Nitrogen 35 H 7-18 mg/dL Creatinine 1.0 0.5-1.3 mg/dL Glomerular Filtration Rate Calc 79 >90 mL/min Random Glucose 255 H 70-105 mg/dL Total Calcium 8.1 L 8.5-10.1 mg/dL Magnesium Level 1.90 1.80-2.40 mg/dL Total Bilirubin 0.3 0.2-1.0 mg/dL Aspartate Amino Transf (AST/SGOT) 21 10-37 U/L Alanine Aminotransferase (ALT/SGPT) 55 12-78 U/L Alkaline Phosphatase 63 50-136 U/L Total Protein 6.6 6.0-8.3 g/dL Albumin 2.2 L 3.5-5.0 g/dL Whole Blood Glucose 250 H 70-110 MG/DL Diagnostics / Radiology: [Copy/Paste Echos/Imaging Report here] Impression and Plan: [Peripheral arterial disease Possible venous insufficiency Diabetes mellitus Diabetic angiopathy Mild to moderate aortic valve stenosis PLAN: -2d mild to moderate aortic valve stenosis with normal LVEF. -Abnormal arterial lower extremity ultrasound with biphasic flow in L CIRCULATION SUPERVISOR, monophasic flow in the left popliteal and PHYSICIAN ASSISTANT, right PT and DP -normal venous lower extremity dopplers -will plan for CTA abdominal aorta with run off #HTN - c/w lisinopril 10 mg daily. This is the patient's home medication. ] WILLIAM GUTIERRES MD Feb 05, 2025 10:14
[2025-02-05] MEDS ORDERED: IOHEXOL-350 75 ML VIAL IV ONE (10:24)
[2025-02-05] MEDS ORDERED: IOHEXOL-350 50ML VIAL IV ONE (10:24)
--- NOTE | 2025-02-05 15:17 | PN ---
PROGRESS NOTE PROGRESS NOTE DATE OF PROGRESS NOTE: 02/05/25 SUBJECTIVE: Leg pain has improved but still has weakness to the legs and gait VITAL SIGNS Vital Signs Date Time Temp Pulse Resp B/P (MAP) Pulse Ox O2 Delivery O2 Flow Rate FiO2 02/05/25 08:00 97.7 63 20 123/66 92 Room Air 02/04/25 20:05 0 21 PHYSICAL EXAM: HEENT atraumatic normocephalic head Neck is supple Lungs are clear to auscultation percussion Heart was S1-S2 heard no murmur Extremities no pedal edema Extremities reveal bluish discoloration with feeble pedal pulses Skin exam unremarkable Neurologic no focal weakness Psychiatric no depression LABORATORY: Laboratory Result(s) Test 02/04/25 16:34 02/04/25 20:09 02/05/25 05:15 02/05/25 05:16 Whole Blood Glucose 333 MG/DL (70-110) 260 MG/DL (70-110) 250 MG/DL (70-110) White Blood Count 13.9 K/uL (4.8-10.8) Red Blood Count 4.35 MIL/uL (4.50-6.20) Hemoglobin 13.0 g/dL (14.0-18.0) Hematocrit 39.7 % (42-54) Mean Corpuscular Volume 91.3 fL (79-99) Mean Corpuscular Hemoglobin 29.9 pg (27.0-33.0) Mean Corpuscular Hemoglobin Concent 32.7 g/dL (32.0-36.0) Red Cell Distribution Width 13.1 % (11.0-15.5) Platelet Count 575 K/uL (130-400) Mean Platelet Volume 8.9 fL (7.5-10.5) Nucleated Red Blood Cells 0.0 % (0.0-0.19) Sodium Level 136 mmol/L (136-145) Potassium Level 4.5 mmol/L (3.5-5.1) Chloride Level 102 mmol/L (101-111) Carbon Dioxide Level 23 mmol/L (21-32) Blood Urea Nitrogen 35 mg/dL (7-18) Creatinine 1.0 mg/dL (0.5-1.3) Glomerular Filtration Rate Calc 79 mL/min (>90) Random Glucose 255 mg/dL (70-105) Total Calcium 8.1 mg/dL (8.5-10.1) Magnesium Level 1.90 mg/dL (1.80-2.40) Total Bilirubin 0.3 mg/dL (0.2-1.0) Aspartate Amino Transf (AST/SGOT) 21 U/L (10-37) Alanine Aminotransferase (ALT/SGPT) 55 U/L (12-78) Alkaline Phosphatase 63 U/L (50-136) Total Protein 6.6 g/dL (6.0-8.3) Albumin 2.2 g/dL (3.5-5.0) Test 02/05/25 12:05 Whole Blood Glucose 237 MG/DL (70-110) INPATIENT MEDS: Current Medications Medications Dose Ordered Sig/Laurie Start Time Stop Time Status Last Admin Acetaminophen 650 mg Q4H PRN 02/02/25 14:00 03/04/25 13:59 02/03/25 09:41 Ondansetron HCl 4 mg Q6H PRN 02/02/25 14:00 03/04/25 13:59 Zolpidem Tartrate 5 mg HS PRN 02/02/25 14:00 03/04/25 13:59 Nitroglycerin 0.4 mg AD PRN 02/02/25 14:00 03/04/25 13:59 Clonidine HCl 0.1 mg Q4H PRN 02/02/25 14:00 03/04/25 13:59 Aspirin 325 mg DAILY 02/03/25 09:00 03/05/25 08:59 02/05/25 09:07 Lisinopril 10 mg DAILY 02/04/25 09:00 03/06/25 08:59 02/05/25 09:08 Atorvastatin Calcium 40 mg HS 02/04/25 21:00 03/06/25 20:59 02/04/25 20:01 Insulin Human Regular INSULIN SLIDING SCAL... ACHS 02/04/25 07:30 03/06/25 07:29 02/05/25 14:31 Dextrose 50 ml AD PRN 02/04/25 07:00 03/06/25 06:59 Glucagon 1 mg AD PRN 02/04/25 07:00 03/06/25 06:59 Allopurinol 300 mg DAILY 02/04/25 09:00 03/06/25 08:59 02/05/25 09:08 Clopidogrel Bisulfate 75 mg DAILY 02/04/25 09:00 03/06/25 08:59 02/05/25 09:08 Home Med DAILY 02/04/25 09:00 03/06/25 08:59 Gabapentin 300 mg TID 02/04/25 09:00 03/06/25 08:59 02/05/25 14:27 Prednisone 20 mg DAILY 02/06/25 09:00 03/08/25 08:59 PROBLEM LIST: (1) PAD (peripheral artery disease) ICD Code: I73.9 - Peripheral vascular disease, unspecified PLAN: Peripheral arterial disease workup pending Sliding scale for diabetes Resume home medication for hyperlipidemia Chronic obstructive pulmonary disease Acute gout Solu-Medrol given Physical therapy to evaluate and treat Case management for discharge plan ERIN HIGGINS MD Feb 05, 2025 15:17
--- NOTE | 2025-02-05 20:20 | NUR ---
MEDS SHIFT ASSESSMENT DONE, PLEASE REFER TO CHART. DUE MEDS ADMINISTERED, TOLERATED WELL. PM SNACKS PROVIDED REQUESTED BY PT. KEPT RESTED AND COMFORTABLE IN BED. CALL LIGHT WITHIN REACH. BED ALARM KEPT ACTIVATED.
[2025-02-06] VITALS (9 sets, daily range): BP systolic 106–138; BP diastolic 54–76; PULSE 59–92; RESP 16–18; TEMP 97.6–98.1; O2SAT 97
--- NOTE | 2025-02-06 04:51 | NUR ---
ROUNDS PT RESTING IN BED, SLEPT AT INTERVALS DURING THE SHIFT. NO COMPLAINTS VERBALIZED AT THIS TIME. NO DISTRESS NOTED. KEPT COMFORTABLE. FOR MORE CARE.
--- NOTE | 2025-02-06 06:50 | NUR ---
MD DR HIGGINS IN TO SEE PT. NEW ORDERS RECEIVED, PLEASE REFER TO CPOE. ENDORSING PT TO AM NURSE JESSI PARKINSON, FOR MORE CARE AND MANAGEMENT.
[2025-02-06 07:01] LABS: NUCLEATED RED BLOOD CELLS 0.0 % (0.0-0.19); PLATELET COUNT (AUTO) 636.0 K/uL (130-400); RED BLOOD CELL COUNT(AUTO) 4.57 MIL/uL (4.50-6.20); RED CELL DISTRIBUTION WIDTH 13.3 % (11.0-15.5); WHITE BLOOD COUNT (AUTO) 13.1 K/uL (4.8-10.8)
[2025-02-06 07:26] LABS: ASPARTATE AMINOTRANSFERASE 23.0 U/L (10-37); CREATININE 0.9 mg/dL (0.5-1.3); GLOMERULAR FILTR. RATE CALC 90.0 mL/min (>90); GLUCOSE,RANDOM 135.0 mg/dL (70-105); SODIUM SERUM 139.0 mmol/L (136-145); TOTAL PROTEIN, SERUM 6.7 g/dL (6.0-8.3); UREA NITROGEN, BLOOD 33.0 mg/dL (7-18)
--- NOTE | 2025-02-06 09:41 | HMCIMG ---
EXAM: CT angiogram of the abdomen and pelvis with bilateral runoff CLINICAL HISTORY: PAD TECHNIQUE: Axial computed tomography images of the abdomen, pelvis and bilateral lower extremities with intravenous contrast. CONTRAST: IV contrast. COMPARISON: None. FINDINGS: EXA Abdominal aorta: No aneurysmal dilation. Atherosclerotic calcifications without focal stenosis. Celiac trunk: No aneurysmal dilation. Atherosclerotic calcifications with mild proximal focal stenosis. SMA: No aneurysmal dilation. Atherosclerotic calcifications with mild proximal focal stenosis. Renal Arteries: No aneurysmal dilation. Atherosclerotic calcifications with mild proximal stenosis on the right and moderate proximal stenosis on the left. SABINA: No aneurysmal dilation. Atherosclerotic calcifications without focal stenosis. RIGHT: Common iliac artery: No aneurysmal dilation. Atherosclerotic calcifications with mild stenosis. External and internal iliac arteries: No aneurysmal dilation. Atherosclerotic calcifications with mild stenosis in the right internal iliac artery. Common femoral artery: No aneurysmal dilation. Atherosclerotic calcifications without focal stenosis. Deep femoral artery: No aneurysmal dilation. Atherosclerotic calcifications without focal stenosis. Proximal, mid and distal femoral arteries: No aneurysmal dilation. Atherosclerotic calcifications with mild stenosis. Popliteal artery: No aneurysmal dilation. Atherosclerotic calcifications with mild stenosis. Tibioperoneal trunk: No aneurysmal dilation. Atherosclerotic calcifications with mild stenosis. A three-vessel runoff to the right lower extremity demonstrates patent anterior tibial, posterior tibial and peroneal arteries with mild luminal narrowing with atheromatous calcification. LEFT: Common iliac artery: No aneurysmal dilation. Atherosclerotic calcifications with mild stenosis. External and internal iliac arteries: No aneurysmal dilation. Atherosclerotic calcifications with mild stenosis in the left internal iliac artery. Common femoral artery: No aneurysmal dilation. Atherosclerotic calcifications without focal stenosis. Deep femoral artery: No aneurysmal dilation. Atherosclerotic calcifications with mild stenosis. Proximal, mid and distal femoral arteries: No aneurysmal dilation. Atherosclerotic calcifications with mild stenosis. Popliteal artery: No aneurysmal dilation. Atherosclerotic calcifications with mild stenosis. Tibioperoneal trunk: No aneurysmal dilation. Atherosclerotic calcifications with mild stenosis. A three-vessel runoff to the right lower extremity demonstrates patent anterior tibial, posterior tibial and peroneal arteries without evidence of luminal narrowing with atheromatous calcification. LUNG BASES: The lung bases appear clear except for a atelectasis. No pleural effusions are seen. LIVER: Fatty infiltration. There is a 2.3 cm indeterminate hypodense lesion in the segment five of the right lobe of liver. GALLBLADDER AND BILE DUCTS: Surgically absent. No biliary ductal dilatation is evident. PANCREAS: Unremarkable. SPLEEN: Unremarkable. ADRENAL GLANDS: Unremarkable. KIDNEYS, URETERS, AND BLADDER: There is a 1.5 cm left renal parapelvic cyst. An additional 0.3 cm too small too characterize satellite hypodense lesion is seen in the adjacent left renal cortex. The kidneys otherwise appear within normal limits. There is no hydronephrosis or hydroureter. No urinary calculi are seen. On the delayed phase images there is opacification of the renal collecting system and urinary bladder. STOMACH AND BOWEL: Unremarkable appearance of the stomach and opacified bowel. No evidence of bowel obstruction. No evidence suggesting enteritis or colitis. APPENDIX: Unremarkable. PERITONEUM: No free fluid or free air. LYMPH NODES: No lymphadenopathy is evident. REPRODUCTIVE: Prostatomegaly. BONES: No aggressive appearing osseous lesion. No acute osseous pathology evident. SOFT TISSUE: There is a small fat containing left inguinal hernia. IMPRESSION: No abdominal aortic aneurysm or dissection. Diffuse atherosclerotic vascular wall calcifications with mild peripheral vascular disease, as described above.3 Small 2.3cm indeterminate hypodense lesion in the segment five of the right lobe of liver. /[place]
--- NOTE | 2025-02-06 13:05 | PN ---
Cardiology Progress Note Date of Service: 02/06/2025 Attending Steersman: Dr. Scott Alexandre Primary Steersman: Dr. Denver Salinas Reason for Consult: PAD Problem List: -Bilateral lower extremity weakness -Leukocytosis -Thrombocytosis -Normal LV systolic function (LVEF >55% by echo done 02/03/2025) -PAD -Suspected CVI -HTN -HLP -DM2 -Obesity Subjective: This is a 74y/o male who was seen and evaluated at the bedside today. The patient complains of bilateral lower extremity weakness, but denies any chest pain, chest pressure, palpitations, shortness of breath, or peripheral claudication symptoms. As per the nurse, there were no overnight events. Vitals/Labs Vital Signs Date Time Temp Pulse Resp B/P (MAP) Pulse Ox O2 Delivery O2 Flow Rate FiO2 02/06/25 12:15 98.1 68 18 129/62 97 Room Air 02/06/25 08:10 0 21 General: Awake and alert. No acute distress. Chronically ill appearing. HEENT: Normocephalic, atraumatic. EOMI. Oral mucosa was moist. Neck: No masses, JVD, or carotid bruits. Lungs: No respiratory distress. SCM. Bilateral air entry. Clear to auscultation bilaterally. Cardio: Regular rate. Normal S1 and S2, +S4. No murmurs, rubs, or gallops. Abdomen: Soft, nontender, nondistended. No organomegaly. Normoactive bowel sounds x 4 quadrants. Extremities. 1+ nonpitting edema seen in the bilateral lower extremities (R>L). No clubbing or cyanosis. Diminished pulses noted throughout. Neuro: Cranial nerves II through XII are grossly intact. No focal deficits identified. Laboratory Tests 02/06/25 06:53 Assessment: -Bilateral lower extremity weakness -Leukocytosis -Thrombocytosis -Normal LV systolic function (LVEF >55% by echo done 02/03/2025) -PAD -Suspected CVI -HTN -HLP -DM2 -Obesity Plan: 1. Bilateral lower extremity weakness -Although the patient's arterial Doppler identified PAD primarily affecting the infrapopliteal vessels, the patient's symptoms do not appear to be secondary to underlying PAD and instead are thought to be secondary to lumbar radiculopathy. -As a result, we do not recommend any further invasive PAD treatment and instead we recommend that the patient continue with physical therapy in order to address his symptoms. -In the meantime, he will continue on aspirin 81 mg daily, clopidogrel 75 mg daily, and atorvastatin 40 mg QHS. We will be signing off of the case. Please have the patient follow up with Cardiology, Dr. Denver Salinas, 2 weeks after discharge. This case was discussed with my Supervising Physician, Dr. Scott Alexandre, and the above mentioned plan was formulated and agreed upon. -Progress Note written by Zofia Rodriguez, MSN, [employer], AGACNP-BC ZOFIA RODRIGUEZ Feb 06, 2025 13:05
--- NOTE | 2025-02-06 22:08 | PN ---
PROGRESS NOTE PROGRESS NOTE DATE OF PROGRESS NOTE: 02/06/25 SUBJECTIVE: Patient is pending clearance from Cardiology for discharge is leg pain resolved with treatment of gout he is still leg weakness pending discharge to custodial facility VITAL SIGNS Vital Signs Date Time Temp Pulse Resp B/P (MAP) Pulse Ox O2 Delivery O2 Flow Rate FiO2 02/06/25 20:00 97.9 92 18 106/54 97 Room Air 21 02/06/25 20:00 0 PHYSICAL EXAM: HEENT atraumatic normocephalic head Neck is supple Lungs are clear to auscultation percussion Heart was S1-S2 heard no murmur Extremities no pedal edema Extremities reveal bluish discoloration with feeble pedal pulses Skin exam unremarkable Neurologic no focal weakness Psychiatric no depression LABORATORY: Laboratory Result(s) Test 02/06/25 05:06 02/06/25 06:53 02/06/25 11:09 02/06/25 15:00 Whole Blood Glucose 121 MG/DL (70-110) 168 MG/DL (70-110) 284 MG/DL (70-110) White Blood Count 13.1 K/uL (4.8-10.8) Red Blood Count 4.57 MIL/uL (4.50-6.20) Hemoglobin 13.5 g/dL (14.0-18.0) Hematocrit 41.6 % (42-54) Mean Corpuscular Volume 91.0 fL (79-99) Mean Corpuscular Hemoglobin 29.5 pg (27.0-33.0) Mean Corpuscular Hemoglobin Concent 32.5 g/dL (32.0-36.0) Red Cell Distribution Width 13.3 % (11.0-15.5) Platelet Count 636 K/uL (130-400) Mean Platelet Volume 8.8 fL (7.5-10.5) Nucleated Red Blood Cells 0.0 % (0.0-0.19) Sodium Level 139 mmol/L (136-145) Potassium Level 4.0 mmol/L (3.5-5.1) Chloride Level 105 mmol/L (101-111) Carbon Dioxide Level 25 mmol/L (21-32) Blood Urea Nitrogen 33 mg/dL (7-18) Creatinine 0.9 mg/dL (0.5-1.3) Glomerular Filtration Rate Calc 90 mL/min (>90) Random Glucose 135 mg/dL (70-105) Total Calcium 8.4 mg/dL (8.5-10.1) Magnesium Level 2.10 mg/dL (1.80-2.40) Total Bilirubin 0.5 mg/dL (0.2-1.0) Aspartate Amino Transf (AST/SGOT) 23 U/L (10-37) Alanine Aminotransferase (ALT/SGPT) 50 U/L (12-78) Alkaline Phosphatase 69 U/L (50-136) Total Protein 6.7 g/dL (6.0-8.3) Albumin 2.5 g/dL (3.5-5.0) Test 02/06/25 19:16 Whole Blood Glucose 306 MG/DL (70-110) INPATIENT MEDS: Current Medications Medications Dose Ordered Sig/Laurie Start Time Stop Time Status Last Admin Acetaminophen 650 mg Q4H PRN 02/02/25 14:00 03/04/25 13:59 02/03/25 09:41 Ondansetron HCl 4 mg Q6H PRN 02/02/25 14:00 03/04/25 13:59 Zolpidem Tartrate 5 mg HS PRN 02/02/25 14:00 03/04/25 13:59 Nitroglycerin 0.4 mg AD PRN 02/02/25 14:00 03/04/25 13:59 Clonidine HCl 0.1 mg Q4H PRN 02/02/25 14:00 03/04/25 13:59 Aspirin 325 mg DAILY 02/03/25 09:00 03/05/25 08:59 02/06/25 09:17 Lisinopril 10 mg DAILY 02/04/25 09:00 03/06/25 08:59 02/06/25 09:18 Atorvastatin Calcium 40 mg HS 02/04/25 21:00 03/06/25 20:59 02/06/25 19:52 Insulin Human Regular INSULIN SLIDING SCAL... ACHS 02/04/25 07:30 03/06/25 07:29 02/06/25 19:54 Dextrose 50 ml AD PRN 02/04/25 07:00 03/06/25 06:59 Glucagon 1 mg AD PRN 02/04/25 07:00 03/06/25 06:59 Allopurinol 300 mg DAILY 02/04/25 09:00 03/06/25 08:59 02/06/25 09:25 Clopidogrel Bisulfate 75 mg DAILY 02/04/25 09:00 03/06/25 08:59 02/06/25 09:18 Home Med DAILY 02/04/25 09:00 03/06/25 08:59 Gabapentin 300 mg TID 02/04/25 09:00 03/06/25 08:59 02/06/25 19:52 Prednisone 40 mg DAILY 02/06/25 09:00 03/08/25 08:59 02/06/25 09:18 PROBLEM LIST: (1) PAD (peripheral artery disease) ICD Code: I73.9 - Peripheral vascular disease, unspecified PLAN: Peripheral arterial disease workup pending Sliding scale for diabetes Resume home medication for hyperlipidemia Chronic obstructive pulmonary disease Acute gout Solu-Medrol given Physical therapy to evaluate and treat Case management for discharge plan ERIN HIGGINS MD Feb 06, 2025 22:08
[2025-02-07 04:00] VITALS: BP 138/72; PULSE 75; RESP 18; TEMP 97.5
[2025-02-07 08:00] VITALS: O2SAT 95
[2025-02-07 08:12] VITALS: BP 137/73; PULSE 70; RESP 18; TEMP 97.8
[2025-02-07 11:39] VITALS: BP 146/69; PULSE 66; RESP 18; TEMP 98.1
--- NOTE | 2025-02-07 13:04 | NUR ---
discharged patient and family educated on discharge instructions including diet, activity, follow ups, medications, signs and symptoms to report. answered patient and family questions, both understood. called [facility] to give report on patient, spoke with CYDNEY Ash.
--- NOTE | 2025-02-07 21:57 | DS ---
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): [] PROCEDURE(S)/TREATMENT(S): [None] PROBLEM(S): [] FOLLOW-UP TEST(S): [] DISCHARGE INSTRUCTIONS: [Follow up with PCP in 1-2 days] Home Meds Reported Medications Gabapentin (Gabapentin) 600 Mg Tablet, 300 MG PO TID, TAB 02/02/25 Clopidogrel Bisulfate (Plavix) 75 Mg Tablet, 1 TAB PO DAILY for 30 Days, #30 TAB 0 Refills 02/02/25 Allopurinol (Allopurinol) 300 Mg Tablet, 1 TAB PO DAILY for 30 Days, #30 TAB 0 Refills 02/02/25 Lisinopril (Lisinopril) 10 Mg Tablet, 1 TAB PO DAILY for 30 Days, #30 TAB 0 Refills 02/02/25 Rosuvastatin Calcium (Rosuvastatin Calcium) 20 Mg Tablet, 20 MG PO DAILY, TAB 02/02/25 Dapagliflozin Propanediol (Farxiga) 10 Mg Tablet, 10 MG PO DAILY, TAB 02/02/25 ERIN HIGGINS MD Feb 07, 2025 21:57
== END 2025-02-07 14:06 | DRG 301 ==
LOC: EDH 12:53 → DIRECT 12:54 → 3DH 22:51 → OBSVTOIN 02-06 08:30
PROVIDERS: ADMIT Internal Medicine; ATTEND Internal Medicine
DX: E11.51 Type 2 diabetes mellitus with diabetic peripheral angiopathy without gangrene (principal); M54.16 Radiculopathy, lumbar region; M10.9 Gout, unspecified; I87.2 Venous insufficiency (chronic) (peripheral); D72.829 Elevated white blood cell count, unspecified; D75.839 Thrombocytosis, unspecified; I35.0 Nonrheumatic aortic (valve) stenosis; E66.9 Obesity, unspecified; E78.5 Hyperlipidemia, unspecified; I10 Essential (primary) hypertension; J44.9 Chronic obstructive pulmonary disease, unspecified; Z87.891 Personal history of nicotine dependence; Z68.32 Body mass index [BMI] 32.0-32.9, adult; Z79.899 Other long term (current) drug therapy
CPT/HCPCS: 36415; 71045; 75635; 80048; 80053; 80061; 81001; 82306; 82550; 82607; 82948; 83036; 83735; 84484; 85025; 85027; 85610; 85730; 93005; 93306; 93356; 93925; 93970; A6250; G0378; J1815; J2919; Q9967